=== PATIENT | male | born 1970 ===

== ENCOUNTER 2018-10-15 09:20 | Day surgery (SDC) | payer BC ==
[~2018-10-15] VITALS: Ht 167.6 cm; Wt 93.0 kg
[2018-10-15] VITALS (7 sets, daily range): BP systolic 114–132; BP diastolic 64–82
[~2018-10-15 09:20] MED LIST: LR 1000ml 1,000 ML IVLG SCH
[2018-10-15] MEDS ORDERED: NKM (10:12)
[2018-10-15] MEDS ORDERED: LR 1000ml 1,000 ML IVLG SCH (11:26)
[2018-10-15] MEDS ORDERED: Lidocaine 1% MPF 10mg/ml 5ml ONE (11:30)
[2018-10-15] MEDS ORDERED: fentaNYL 100 mcg/2 mL IV PRN (11:30)
[2018-10-15] MEDS ORDERED: Midazolam 2mg/2ml Inj IVP PRN (11:30)
[2018-10-15] MEDS ORDERED: Propofol 200mg/20ml IV ONE (11:30)
[2018-10-15] MEDS ORDERED: LR 1000ml ONE (11:30)
[2018-10-15] MEDS ORDERED: Atropine Inj 1mg/10ml Syr IV PRN (11:30)
[2018-10-15] MEDS ORDERED: DiphenhydrAMINE 50mg/ml Inj IVP PRN (11:30)
--- NOTE | 2018-10-15 11:32 | Anethesia Preoperative Eval ---
Anesthesia Pre-op PMH/ROS General Date of Evaluation: Oct 15, 2018 Time of Evaluation: 11:31 Anesthesiologist: marie ASA Score: ASA 2 Mallampati Score Class I : Soft palate, uvula, fauces, pillars visible Class II: Soft palate, uvula, fauces visible Class III: Soft palate, base of uvula visible Class IV: Only hard plate visible Mallampati Classification: Class II Surgeon: caroline Diagnosis: abdominal pain, family history of colon cancer Surgical Procedure: egd/colonoscopy Anesthesia History: none Social History: smoking - nonsmoker Family History: no anesthesia problems Allergies: Coded Allergies: No Known Allergies (Unverified , 10/14/18) Medications: see eMAR Patient NPO?: Yes Past Medical History HEENT: Reports: other - decreased visual acuity, waers corrective lenses Anesthesia Pre-op Phys. Exam Physician Exam Last Vital Signs Date Time Temp Pulse Resp B/P (MAP) Pulse Ox O2 Delivery O2 Flow Rate FiO2 10/15/18 10:08 Room Air 10/15/18 10:06 97.3 78 18 132/76 99 Constitutional: NAD Neurologic: CN 2-12 intact Cardiovascular: RRR Respiratory: CTA Gastrointestinal: S/NT/ND Airway Exam Mallampati Score: Class II MO: full Neck: flexible TMD: 2fb ROM: full Teeth: broken Anesthesia Pre-op A/P Risk Assessment & Plan Assessment: asa2 Plan: mac Status Change Before Surgery: No Pre-Antibiotics Drug: Kiki Fleming MD Oct 15, 2018 11:32
--- NOTE | 2018-10-15 11:38 | Short Stay Surgery H&P ---
History of Present Illness History of Present Illness Chief Complaint See typed H&P HPI Red Guzman is a 48 year old male who was admitted on for Abdominal Pain Family Of Colon Cancer Patient History Allergies: Coded Allergies: No Known Allergies (Unverified , 10/14/18) Medication History Scheduled No Known Medications* (NKM - No Known Medications*), 0 ., (Reported) Physical Exam Vital Signs Last Vital Signs Date Time Temp Pulse Resp B/P (MAP) Pulse Ox O2 Delivery O2 Flow Rate FiO2 10/15/18 10:08 Room Air 10/15/18 10:06 97.3 78 18 132/76 99 Plan Attestation Are the patient's medical conditions optimized for surgery? Reena Bell MD Oct 15, 2018 11:38
--- NOTE | 2018-10-15 11:39 | Pre-Procedure Note/Attestation ---
Pre-Procedure Note/Attestation Complete Prior to Procedure Planned Procedure: not applicable Procedure Narrative: EGD/Colon Indications for Procedure Pre-Operative Diagnosis: abd pain, FH of colon CA, frequent BM Attestation I attest that I discussed the nature of the procedure; its benefits; risks and complications; and alternatives (and the risks and benefits of such alternatives ), prior to the procedure, with the patient (or the patient's legal customer service representative teller). I attest that, if there was a reasonable possibility of needing a blood transfusion, the patient (or the patient's legal customer service representative teller) was given the [facility] standardized written summary, pursuant to the [place] Evin Blood Safety Act ([place] Health and Safety Code # 1645, as amended). I attest that I re-evaluated the patient just prior to the surgery and that there has been no change in the patient's H&P, except as documented below: Reena Bell MD Oct 15, 2018 11:39
--- NOTE | 2018-10-15 12:29 | Endoscopy Procedure Note ---
Endoscopy Procedure Note General Indication for Procedure: abd pain, freq BM, FH of colon CA, inflam markers Procedures Performed: EGD, colonoscopy Operative Findings/Diagnosis: TV polyp x 2 Specimen: yes Pt Tolerated Procedure Well: Yes Estimated Blood Loss: none Anesthesia Anesthesiologist: [place] Anesthesia: MAC Medications Medication Given: see anesthesia record Inserted Devices Implant(s) used?: No Quality Was there any complications?: No GI Core Measures 50 yrs or older w/o bx or poly: Not Applicable 10yrs. F/U not recommended: Not Applicable If not recommended, why?: Reena Bell MD Oct 15, 2018 12:29
--- NOTE | 2018-10-15 12:30 | Brief Operative Note ---
Immediate Post Operative Note Operative Note Chief Complaint: FH of colon CA, freq BM, abd pain, inflam markers Pre-op Diagnosis: abd pain, FH of colon CA, frequent BM Procedure: E bx, C bx, snare Post-op Diagnosis: colon polyp x 2 Surgeon: caroline Anesthesiologist: [place] Anesthesia: MAC Specimen: yes Complications: none Condition: stable Fluids: recorded Estimated Blood Loss: none Drains: none Implant(s) used?: No Reena Bell MD Oct 15, 2018 12:30
--- NOTE | 2018-10-15 12:54 | Immediate Post-Op Evaluation ---
Immediate Post-Op Evalulation Immediate Post-Op Evalulation Procedure: egd/colonoscopy/bx Date of Evaluation: Oct 15, 2018 Time of Evaluation: 12:52 IV Fluids: 600ml lr Blood Products: none Estimated Blood Loss: negligible Blood Pressure Systolic: 115 Blood Pressure Diastolic: 73 Pulse Rate: 74 Respiratory Rate: 18 O2 Sat by Pulse Oximetry: 100 Temperature (Fahrenheit): 97.6 Pain Score (1-10): 0 Nausea: No Vomiting: No Complications none Patient Status: awake, reacts, patent Hydration Status: adequate Drug: Kiki Fleming MD Oct 15, 2018 12:54
--- NOTE | 2018-10-15 12:55 | 48 Hour Post Anesthesia Eval ---
Post Anesthesia Evaluation Procedure: egd/colonoscopy/bx Date of Evaluation: Oct 15, 2018 Time of Evaluation: 12:54 Blood Pressure Systolic: 112 0: 78 Pulse Rate: 75 Respiratory Rate: 18 Temperature (Fahrenheit): 97.6 O2 Sat by Pulse Oximetry: 100 Airway: patent Nausea: No Vomiting: No Pain Intensity: 0 Hydration Status: adequate Cardiopulmonary Status: stable Mental Status/LOC: patient returned to baseline Post-Anesthesia Complications: none Follow-up care needed: N/A Kiki Muro MD Oct 15, 2018 12:55
--- NOTE | 2018-10-15 23:45 | Operative Note - Dictated ---
DATE OF OPERATION: 10/15/2018 GASTROENTEROLOGY PROCEDURE REPORT: PROCEDURE: Upper gastrointestinal endoscopy with biopsy as well as colonoscopy with biopsy and snare polypectomy. SURGEON: Reena Bell M.D. ANESTHESIA: Please see the separate anesthesiologist notes for details. PRE-ENDOSCOPIC DIAGNOSES: 1. Family history of colon cancer. 2. Frequent bowel movements resembling diarrhea. 3. Increased inflammatory markers on blood tests. 4. Abdominal pain. POST-ENDOSCOPIC DIAGNOSES: 1. Normal upper endoscopy status post random biopsies of the duodenum and the antrum. 2. Incidental esophageal inlet patch. 3. Normal terminal ileum to about 5 to 10 centimeters status post biopsy. 4. Status post random biopsy of the right and left colon. 5. Status post biopsy with diminutive proximal transverse colon. 6. Status post snare polypectomy and diminutive distal transverse colon polyp. DESCRIPTION OF PROCEDURE: The procedure, its risks, indications, alternatives, and possible complications were explained to the patient and informed consent was obtained. The patient was then sedated in the left lateral decubitus position and a diagnostic upper endoscope was introduced into oropharynx and advanced to the duodenum. It was gradually withdrawn and then a colonoscope was introduced in the rectum and advanced to the terminal ileum. It was gradually withdrawn. Both examinations included retroflexed views. The results were as listed above. The patient was sent to recovery in good condition. COMPLICATIONS: None. RECOMMENDATIONS: 1. Follow up biopsy results. 2. Outpatient followup. Thank you for asking me to participate in care this patient. Reena Bell M.D. DR: DALTON JOB#: [id number] CC:
== END 2018-10-15 13:40 | disposition home or self-care (01) ==
LOC: GAS 09:20
DX: K29.80 Duodenitis without bleeding (principal); K29.50 Unspecified chronic gastritis without bleeding; R19.4 Change in bowel habit; Z80.0 Family history of malignant neoplasm of digestive organs; K63.5 Polyp of colon
CPT/HCPCS: 43239; 45380; 45385; J2704; 94003; 94150